=== PATIENT | female | born 1965 | race Two or more races ===

== ENCOUNTER 2017-07-19 08:55 | Outpatient (CLI) | payer OTHER | END 2017-07-19 09:01 | disposition home or self-care (01) | LOC: SONOGRAMA 08:55 | DX: E04.2 Nontoxic multinodular goiter (principal) ==

== ENCOUNTER 2020-04-18 12:00 | Emergency (ER) | payer OTHER ==
[~2020-04-18] VITALS: Ht 172.7 cm; Wt 83.9 kg
[2020-04-18] MEDS ORDERED: GLIMEPIRIDE2 MG (12:18)
[2020-04-18] MEDS ORDERED: PENTYLENE GLY4000 ML (12:18)
[2020-04-18] MEDS ORDERED: TRULICITY0.75 MG/0. (12:18)
[2020-04-18] MEDS ORDERED: CRESTOR20 MG (12:19)
[2020-04-18] MEDS ORDERED: PROTONIX40 M1 (12:19)
[2020-04-18] MEDS ORDERED: FENOFIBRATE150 MG (12:19)
[2020-04-18] MEDS ORDERED: INVOKAMET 150-1 EACH (12:19)
[2020-04-18] MEDS ORDERED: MUPIROCIN15 GM (12:20)
[2020-04-18] MEDS ORDERED: KEFLEX500 MG (12:21)
== END 2020-04-18 14:18 | disposition home or self-care (01) ==
LOC: ER 12:00
DX: L03.211 Cellulitis of face (principal); E11.9 Type 2 diabetes mellitus without complications; Z79.84 Long term (current) use of oral hypoglycemic drugs

== ENCOUNTER 2022-12-11 17:32 | Emergency (ER) | payer OTHER ==
[~2022-12-11] VITALS: Ht 172.7 cm; Wt 77.1 kg
[~2022-12-11 17:32] MED LIST: CRESTOR20 MG; FENOFIBRATE150 MG; GLIMEPIRIDE2 MG; INVOKAMET 150-1 EACH; KEFLEX500 MG; MUPIROCIN15 GM; PENTYLENE GLY4000 ML; PROTONIX40 M1; TRULICITY0.75 MG/0.
[2022-12-11] MEDS ORDERED: ROSUVASTATIN CA20 MG PO (17:49)
== END 2022-12-11 19:19 | disposition home or self-care (01) ==
LOC: ER 17:32
DX: M54.31 Sciatica, right side (principal); Z88.6 Allergy status to analgesic agent; Z88.5 Allergy status to narcotic agent

== ENCOUNTER 2024-10-06 07:49 | Outpatient (CLI) | payer OTHER ==
[~2024-10-06 07:49] MED LIST changes: +ROSUVASTATIN CA20 MG PO
== END 2024-10-06 07:52 | disposition home or self-care (01) ==
LOC: SONOGRAMA 07:49
PROVIDERS: ATTEND Pathology Anatomic Pathology & Clinical Pathology
DX: D34 Benign neoplasm of thyroid gland (principal); E07.89 Other specified disorders of thyroid; E04.2 Nontoxic multinodular goiter

== ENCOUNTER 2025-03-21 05:49 | Emergency (ER) | payer OTHER ==
[~2025-03-21] VITALS: Ht 172.7 cm; Wt 72.6 kg
[2025-03-21] MEDS ORDERED: SYNJARDY 12.5-1 EACH (06:00)
[2025-03-21] MEDS ORDERED: TERBINAFINE HC250 MG (06:02)
[2025-03-21] MEDS ORDERED: ESTRACE42.5 GM (06:03)
[2025-03-21] MEDS ORDERED: ORPHENADRINE CITRATE 30 MG/ML AMPUL IM ONE (09:00)
[2025-03-21] MEDS ORDERED: KETOROLAC TROMETHAMINE 60 MG VIAL IM ONE (09:00)
== END 2025-03-21 10:14 ==
LOC: ER 05:49
DX: M62.838 Other muscle spasm (principal); E11.9 Type 2 diabetes mellitus without complications; Z79.84 Long term (current) use of oral hypoglycemic drugs; Z88.8 Allergy status to other drugs, medicaments and biological substances; Z85.3 Personal history of malignant neoplasm of breast